=== PATIENT | male | born 1985 | race Hispanic/Latino ===

== ENCOUNTER 2020-10-26 20:13 | Emergency (ER) | payer OTHER ==
[~2020-10-26] VITALS: Ht 177.8 cm; Wt 91.6 kg
[2020-10-26] MEDS ORDERED: LIDOCAINE 1% W/EPINEPHRINE 20 ML VIAL INJ STA (21:35)
[2020-10-26] MEDS ORDERED: MUPIROCIN 2% OINT 22 GM TUBE TOP ONE (21:45)
[2020-10-26] MEDS ORDERED: CLEOCIN HCL300 MG PO (21:46)
[2020-10-26] MEDS ORDERED: ACETAMINOPHEN500 MG PO (21:46)
[2020-10-26] MEDS ORDERED: IBUPROFEN IB200 MG PO (21:46)
[2020-10-26] MEDS ORDERED: TETANUS/DIPHTHERIA TOX ADULT 0.5 ML SYR IM STA (22:03)
[2020-10-26] MEDS ORDERED: LIDOCAINE 1% W/EPINEPHRINE 20 ML VIAL ONE (22:19)
[2020-10-26] MEDS ORDERED: BACITRACIN ZINC 0.9GM TP ONE (22:45)
[2020-10-26] MEDS ORDERED: TETANUS/DIPHTHERIA TOX ADULT 0.5 ML SYR ONE (22:45)
[2020-10-26 22:55] VITALS: BP 142/78
== END 2020-10-26 22:55 | disposition home or self-care (01) ==
LOC: FSED 21:15
DX: S01.112A Laceration without foreign body of left eyelid and periocular area, initial encounter (principal); Y04.0XXA Assault by unarmed brawl or fight, initial encounter; Y93.9 Activity, unspecified; Y92.89 Other specified places as the place of occurrence of the external cause
CPT/HCPCS: 90471; 90714; 99283